=== PATIENT | male | born 1970 | race Caucasian/White ===

== ENCOUNTER 2017-10-26 18:52 | Emergency (ER) | payer OTHER, SELFPAY ==
--- NOTE | 2017-10-26 19:07 | ED_ITS ---
HPI - Dizziness General Chief Complaint: Dizziness Stated Complaint: THROWING UP SWEATING VERTIGO Time Seen by Provider: 10/26/17 19:05 Source: patient Mode of arrival: ambulatory Limitations: no limitations History of Present Illness HPI Narrative: Patient is a 39-year-old male with a history of hypertension and also history of what he describes as BPPV here for evaluation of an onset of vertigo this morning. Patient states that he woke up in his normal state health. He was on vacation. Went and sat in a hot tub for a while. States that he got out of the hot tub and when he stood up he had a vertigo sensation. He states that it was a fairly sudden onset. No other associated symptoms to include chest pain or palpitations or headache or vision changes. States shortly after this he started with nausea and vomiting. He states he was not able to take his blood pressure medication this morning secondary to the vomiting. [place] Phenergan there. He states that after that he was able to sleep. At some point while he was sleeping the vertigo resolved. He had 1 further episode other when he got out of his car here at the emergency department but this only lasted a few seconds. Related Data Previous Rx's Medication Instructions Recorded meclizine 25 mg PO BID-TID PRN #10 tab 10/26/17 ondansetron 4 mg PO BID-TID PRN #10 tab 10/26/17 Review of Systems Constitutional Denies chills, Denies fever(s), Denies frequent falls, Reports headache(s), Denies malaise and Denies weakness Eyes Denies loss of vision ENT Ears, Nose, Mouth, and Throat: Reports vertigo, Reports dizziness, Reports headache(s), Denies neck pain, Denies nose pain, Reports disequilibrium, Denies sore throat and Denies throat swelling Cardiovascular Denies chest pain, Reports diaphoresis, Denies syncope, Denies rapid heart rate , Denies edema and Denies dyspnea Respiratory Denies cough and Denies dyspnea Gastrointestinal Gastrointestinal: Denies abdominal pain, Denies diarrhea, Denies nausea and Denies vomiting Musculoskeletal Reports abnormal gait, Denies myalgias, Denies arthralgias, Denies neck pain, Denies numbness and Denies tingling Integumentary/Breasts Denies lesions and Denies rash Neurologic Reports abnormal gait, Denies confusion, Reports vertigo, Reports dizziness, Denies syncope, Denies frequent falls, Reports headache(s), Denies focal weakness, Denies loss of vision, Denies numbness, Denies convulsions, Denies tingling, Denies paresthesias, Denies tremor(s), Reports disequilibrium and Denies weakness Psychiatric Denies confusion Hematologic/Lymphatic Denies easy bleeding and Denies easy bruising Allergic/Immunologic Denies throat swelling [facility] Medical History Hypertension (Acute) Vertigo (Acute) Surgical History No pertinent past surgical history (Acute) Social History Smoking Status: Never smoker Exam Initial Vital Signs Initial Vital Signs: Vital Signs Temperature 98.2 F 10/26/17 19:16 Pulse Rate 84 10/26/17 19:16 Respiratory Rate 19 10/26/17 19:16 Blood Pressure 167/103 H 10/26/17 19:16 Pulse Oximetry 99 10/26/17 19:16 Const General: cooperative, healthy appearing, comfortable, well developed, well groomed and No acute distress Orientation: alert, awake and oriented x3 HENMT Head: normal to inspection and normocephalic Ears: TM's normal bilaterally Nose: external nose normal Face and sinus: normal facial exam Mouth: oral mucosae normal Teeth and gingiva: dentition normal Throat: posterior oropharynx normal Eyes Pupils: PERRL EOM: EOM intact bilaterally Resp Effort & Inspection: normal respiratory effort Auscultation: clear to auscultation bilaterally Cardio Rate: regular rate Rhythm: regular rhythm Heart Sounds: no murmurs Pulses: radial pulses present GI Inspection: non-distended Palpation: soft, No firm and No tender Skin Lesions: no lesions Rashes: no rashes Neuro General: alert, awake and oriented x3 Cranial Nerves: CN's II-XI intact bilaterally Cognition: normal cognition Speech: speech normal Sensory Exam: no sensory deficits noted Extrem General: normal to inspection and capillary refill normal Psych Appearance: grossly normal and well kempt Course Orders Ordered: ED Orders 10/26/17 19:06 EKG-12 Lead Stat 10/26/17 19:15 Complete Blood Count AUTO DIFF Stat Comprehensive Metabolic Panel Stat Lipase Stat Discontinued Medications Sodium Chloride (Normal Saline 0.9%) 1,000 mls @ 1,000 mls/hr IV BOLUS ONE Stop: 10/26/17 20:04 Last Infusion: 10/26/17 20:22 Dose: 0 mls/hr Admin: 10/26/17 19:19 Dose: 1,000 mls/hr Ondansetron HCl (Zofran) 4 mg IV NOW ONE Stop: 10/26/17 19:06 Last Admin: 10/26/17 19:34 Dose: Vital Signs - 8 hr 10/26/17 19:16 10/26/17 19:56 Temperature 98.2 F Pulse Rate 84 83 Respiratory Rate 19 14 Blood Pressure 167/103 H Blood Pressure [Left Arm] 162/105 H Pulse Oximetry 99 98 MDM - Dizziness Lab Data Attestation: I reviewed the patient's lab results. Result diagrams: 10/26/17 19:15 10/26/17 19:15 Lab Results 10/26/17 10/26/17 Range/Units 19:15 19:15 WBC 11.7 H (4.5-11.0) X10^3/uL RBC 5.23 (4.5-5.9) X10^6/uL Hgb 17.8 H (13.5-17.5) g/dL Hct 51.3 (41-53) % MCV 98.2 (80-100) fL MCH 34.0 (26-34) PG MCHC 34.6 (30-36) % RDW 13.2 (11.6-14.8) % Plt Count 192 (150-400) X10^3/uL Neut % (Auto) 79.0 H (50-75) % Lymph % (Auto) 15.4 L (25-40) % [place] % (Auto) 4.9 (3-14) % Eos % (Auto) 0.3 L (2-4) % Baso % (Auto) 0.4 (0-2) % Neut # (Auto) 9300 H (7594-4047) /uL Sodium 146 H (137-145) mmol/L Potassium 4.5 (3.4-5.1) mmol/L Chloride 105 (98-107) mmol/L Carbon Dioxide 29 (22-32) mmol/L BUN 16 (9-20) mg/dL Creatinine 0.90 (0.66-1.25) mg/dL Estimated GFR > 60.0 (>60) mL/min BUN/Creatinine Ratio 17.8 (6-22) Glucose 117 H (70-100) mg/dL Calcium 10.1 (8.4-10.2) mg/dL Total Bilirubin 0.9 (0.2-1.3) mg/dL AST 47 (17-59) IU/L ALT 93 H (21-72) IU/L Alkaline Phosphatase 106 (38-126) U/L Total Protein 8.8 H (6.3-8.2) g/dL Albumin 5.1 H (3.5-5.0) g/dL Globulin 3.7 (1.7-4.1) g/dL Albumin/Globulin Ratio 1.4 (1.0-2.8) Lipase 48 (23-300) U/L ECG Data Attestation: I personally reviewed and interpreted this ECG as follows: Prior ECG tracings: not available for review Interpretation: Sinus rhythm Ventricular rate is 70 Normal axis Normal intervals Normal QRS Normal QTC No ST T wave changes MDM Narrative Medical decision making narrative: Patient asymptomatic here in the emergency department. Has a normal neurologic exam. Has had vertigo in the past. His history is very similar to this. EKG is unremarkable. Labs are unremarkable. I suspect peripheral vertigo. Will hold on head CT. He did tolerate oral intake. Will send home with symptomatic treatment. He was given return precautions. He expressed understanding and agreement with plan. Discharge Plan Departure Patient Disposition: Home Clinical Impression: Vertigo Instructions: Vertigo (Alternative Therapy), DI for Vertigo Activity Restrictions/Additional Instructions: Continue to increase your fluid intake. Take the medications that were prescribed today as directed. Return to the emergency department for any new or worsening symptoms Prescriptions: New meclizine 25 mg tablet 25 mg PO BID-TID PRN (Reason: motion sickness) Qty: 10 RF: 0 ondansetron 4 mg tablet,disintegrating 4 mg PO BID-TID PRN (Reason: nausea and vomiting) Qty: 10 RF: 0
[2017-10-26 19:16] VITALS: BP 167/103; PULSE 84; RESP 19; TEMP 36.8; O2SAT 99; BMI 29.8
[2017-10-26] MEDS: SODIUM CHLORIDE 0.9% 1,000 ML 1000 ML IV (19:19)
[2017-10-26 19:22] LABS: Add Manual Diff / Slide Review NO; Basophils Percent Auto 0.4 % (0-2); Eosinophils Percent Auto 0.3 % (2-4); Hematocrit 51.3 % (41-53); Hemoglobin 17.8 g/dL (13.5-17.5); Lymphocytes Percent Auto 15.4 % (25-40); Mean Corpuscular HGB Conc 34.6 % (30-36); Mean Corpuscular Volume 98.2 fL (80-100); Monocytes Percent Auto 4.9 % (3-14); Neutrophils Absolute Auto 9300 /uL (3000-5900); Platelet Count 192 X10^3/uL (150-400); Red Blood Cell Count 5.23 X10^6/uL (4.5-5.9); Red Cell Distribution Width 13.2 % (11.6-14.8); White Blood Cell Count 11.7 X10^3/uL (4.5-11.0)
[2017-10-26 19:32] LABS: Alanine Aminotransferase 93 IU/L (21-72); Albumin 5.1 g/dL (3.5-5.0); Albumin Globulin Ratio 1.4 (1.0-2.8); Alkaline Phosphatase 106 U/L (38-126); Aspartate Aminotransferase 47 IU/L (17-59); BUN Creatinine Ratio 17.8 (6-22); Bilirubin Total 0.9 mg/dL (0.2-1.3); Blood Urea Nitrogen 16 mg/dL (9-20); Calcium 10.1 mg/dL (8.4-10.2); Carbon Dioxide 29 mmol/L (22-32); Chloride 105 mmol/L (98-107); Estimated Glomerular Filt Rate > 60.0 mL/min (>60); Globulin 3.7 g/dL (1.7-4.1); Glucose 117 mg/dL (70-100); HEMOLYSIS < 15 (0-50); Lipase 48 U/L (23-300); Potassium 4.5 mmol/L (3.4-5.1); Sodium 146 mmol/L (137-145); Total Protein 8.8 g/dL (6.3-8.2)
[2017-10-26 19:56] VITALS: BP 162/105; PULSE 83; RESP 14; O2SAT 98
[2017-10-26 20:31] VITALS: BP 160/95; PULSE 73; RESP 20; O2SAT 98
== END 2017-10-26 20:45 | disposition home or self-care (01) ==
PROVIDERS: Emergency Provider Emergency Medicine
DX: R42 Dizziness and giddiness (principal)
CPT/HCPCS: 36591; 80053; 83690; 85025; 93005; 96360; 99283; 99284